=== PATIENT | female | born 1945 | race Caucasian/White ===

== ENCOUNTER 2018-02-10 17:23 | Observation (INO) | payer MEDICARE, OTHER ==
[2018-02-10] MEDS ORDERED: ASPIRIN 81 MG TAB.CHEW PO ONE (17:35)
[2018-02-10] MEDS ORDERED: ASPIRIN 81 MG TAB.CHEW ONE (17:41)
[2018-02-10 17:51] LABS: Hematocrit 42.8 % (37.0-47.0); Mean Cell Volume 86.3 fl (78-100); Mean Corpuscular Hemoglobin 28.2 pg (27-31); Mean Corpuscular Hgb Conc 32.7 g/dl (32-36); Mean Platelet Volume 10.6 fl (8-12.5); Neutrophil # 5.2 K/mm3 (1.3-6.0); Neutrophil % 54.4 % (42-75.0); Platelet Count 256 K/mm3 (150-450); Red Blood Count 4.96 M/mm3 (4.2-5.4); Red Cell Distribution Width 13.1 % (11.5-14.0); White Blood Count 9.5 K/mm3 (4.0-10.5)
[2018-02-10 18:15] LABS: ALT 25 U/L (19-67); AST 13 U/L (0-48); Albumin * 3.4 gm/dl (3.4-5.0); Alkaline Phosphatase * 76 U/L (50-170); Anion Gap 8.5 mmol/L (6.8-13.8); BUN/Creatinine Ratio 18.1 (9.0-21.6); Bilirubin, Total 0.5 mg/dL (0.0-1.1); Blood Urea Nitrogen 17 mg/dL (3-23); Ca. Corrected For Albumin 9.2 mg/dL (8.4-10.2); Carbon Dioxide 29.5 mmol/L (24-32.6); Chloride 102 mmol/L (97-106); Glucose * 112 mg/dL (70-110); Sodium 136 mmol/L (132-142); Total Protein 6.6 gm/dL (6.2-8.2); Troponin I Less than 0.017 ng/mL (0.00-0.10)
--- NOTE | 2018-02-10 18:59 | ERNOTE ---
Chest Pain/Cardiac HPI Chief Complaint: Chest Pain Time Seen by Provider: 02/10/18 18:49 Source: patient Exam Limitations: no limitations Immunizations: IMMUNIZATION HX Immunizations Up to Date Yes History of Influenza Vaccine Yes Hx Pneumococcal Vaccination Yes Allergies/Adverse Reactions: Allergies No Known Allergies Allergy (Verified 02/10/18 17:34) Home Medications: HOME MEDICATIONS Albuterol Sulfate [Proair Hfa] 2 puff IH Q4H PRN 10/22/12 [Last Taken Unknown] Atorvastatin Calcium 20 mg PO HS 10/22/12 [Last Taken Unknown] Ferrous Sulfate [Feosol] 325 mg PO DAILY 10/26/13 [Last Taken Unknown] Omeprazole 20 mg PO DAILY 10/26/13 [Last Taken Unknown] Acetaminophen [Tylenol] 1,000 mg PO Q6H PRN 04/06/15 [Last Taken Unknown] Albuterol Sulfate [Albuterol Sulfate 2.5 MG/0.5ML] 1 vial IH Q4H PRN 04/06/15 [Last Taken Unknown] Cholecalciferol (Vitamin D3) [Vitamin D3] 10,000 unit PO DAILY 04/06/15 [Last Taken Unknown] Aspirin [Aspirin Chewable] 81 mg PO DAILY 01/21/16 [Last Taken Unknown] Metoprolol Succinate [Toprol Xl] 50 mg PO DAILY 01/21/16 [Last Taken Unknown] Nitroglycerin [Nitrostat] 0.4 mg SL Q5MX3 PRN 01/21/16 [Last Taken Unknown] amLODIPine BESYLATE [Norvasc] 5 mg PO DAILY 01/21/16 [Last Taken Unknown] alendronate 70 mg tablet 70 mg PO Q7D #5 tab 10/29/17 [Last Taken Unknown] umeclidinium 62.5 mcg/actuation blister powder for inhalation IH 30 Days #30 10/29/17 [Last Taken Unknown] triamcinolone acetonide 0.1 % topical cream 1 applic TOPICAL BID 14 Days #80 g 02/04/18 [Last Taken Unknown] Narrative: Patient has a history of CAD had a stent placed a few years ago. She has had occasional chest pain since and has been followed by Dr Lopez. Today she had one episode of central chest pain radiating to her right jaw, the symptoms lasted 30 minutes resolved with three nitro she took at work, no pain now. She had a prior pain episode earlier this week Date (Duration): 02/10/18 Time (Timing): 17:30 Timing: resolved prior to arrival Severity/Quality: moderate Location: central Chest Pain Radiation: jaw Activities at Onset: none Nitro Today/Relief: 0.4 mg x 3 Aspirin Treatment Today: 81 mg x 4, provided at home, provided by ED Associated Symptoms: Present: cough, shortness of breath. Absent: headache, dizziness, fever/chills, abdominal pain Prior Chest Pain/Cardiac Workup: Reports: prior chest pain, cardiac cath Prior Treatment: Denies: recently seen, currently on antibiotics Review of Systems - Review of Systems Constitutional: Absent: recent illness, fever ENT: Absent: nose congestion, sore throat Respiratory: Present: shortness of breath Cardiology: Present: chest pain Gastrointestinal/Abdominal: Absent: nausea, vomiting, abdominal pain Genitourinary: Present: no symptoms reported Musculoskeletal: Absent: back pain Neurological: Absent: headache Medical History (Last Reviewed 02/10/18 @ 19:23 by Caren Loja MD) Fracture of radius (Acute) Onset Date: ~2009 Wrist fracture (Acute) Onset Date: Unknown Vitamin B12 deficiency (Acute) Onset Date: Unknown Ovarian cyst (Acute) Onset Date: Unknown Osteopenia (Acute) Onset Date: Unknown Onycholysis (Acute) Onset Date: ~2011 Hypertension (Acute) Onset Date: ~2011 Hyperlipidemia (Acute) Onset Date: Unknown Hearing impaired (Acute) Onset Date: ~2011 GERD (gastroesophageal reflux disease) (Chronic) Onset Date: ~2011 Genital herpes (Chronic) Onset Date: Unknown Dyspareunia (Acute) Onset Date: Unknown Diverticulitis (Acute) Onset Date: ~2012 Depression (Chronic) Onset Date: Unknown Coronary artery disease (Chronic) Onset Date: ~2012 COPD (chronic obstructive pulmonary disease) (Acute) Onset Date: ~2014 Animal bite (Acute) Onset Date: Unknown Cat bite (Acute) Onset Date: Unknown Cat bite of hand (Acute) Onset Date: Unknown Cellulitis and abscess of hand (Acute) Onset Date: Unknown Nasal bone fracture (Acute) Onset Date: Unknown Dislocation of right ulnar styloid (Acute) Onset Date: Unknown Distal radius fracture, right (Acute) Onset Date: Unknown Cold sore (Acute) Onset Date: Unknown Post-operative pain (Acute) Onset Date: Unknown Distal radial fracture (Acute) Onset Date: Unknown Ecchymosis (Acute) Onset Date: Unknown Foreign body ingestion (Acute) Onset Date: Unknown Contusion (Acute) Onset Date: Unknown Contusion of left knee (Acute) Onset Date: Unknown Surgical History: Surgical History (Last Reviewed 02/10/18 @ 19:23 by Caren Loja MD) History of appendectomy (Resolved) Onset Date: ~1955 H/O section (Resolved) Onset Date: ~1966 H/O cardiac catheterization (Resolved) Onset Date: ~2012 History of cataract surgery (Resolved) Onset Date: ~2011 Abnormal colonoscopy (Resolved) Onset Date: ~2010 History of coronary artery stent placement (Resolved) Onset Date: ~2011 History of esophagogastroduodenoscopy (EGD) (Resolved) Onset Date: ~2012 H/O knee surgery (Resolved) Onset Date: ~2008 H/O meniscectomy of right knee (Resolved) Onset Date: ~2008 History of open reduction and internal fixation (ORIF) procedure (Resolved) Onset Date: ~2009 H/O tubal ligation (Resolved) Onset Date: ~1978 Family History: Family History (Last Reviewed 02/10/18 @ 17:35 by Marry Rivas RN) Aunt Cancer Mother CHF (congestive heart failure) Heart disease Hypoglycemia Social History: Preferred Language Latvian Smoking Status Never smoker Abuse History No History of abuse Psych History No pertinent hx Alcohol Use none Drug Use none Physical Exam - Physical Exam General Appearance: Present: wd/wn, alert, no apparent distress Ears, Nose, Throat: Present: normal pharynx Respiratory: Present: no respiratory distress, no accessory muscle use, chest nontender, decreased breath sounds, expiration (prolonged) Cardiovascular/Chest: Present: regular rate, rhythm, no murmur Gastrointestinal/Abdominal: Present: normal bowel sounds, nontender, nondistended Extremity Exam: Present: no edema Neurological Exam: Present: alert, oriented, normal mood/affect Skin Exam: Present: normal color, warm/dry ED Progress - Results and Orders Patient's Lab Results:: I have reviewed the patient's lab results. - Vital Signs Patient's Vital Signs:: I have reviewed the patient's vital signs. Vital Signs: Vital Signs 02/10/18 17:32 02/10/18 18:17 Temperature 36.7 C Pulse Rate 58 L 52 L Respiratory Rate 15 16 Blood Pressure 121/55 130/70 O2 Sat by Pulse Oximetry 98 95 - EKG EKG: NSR - sinusbrady, no ST T wave changes, other - no acute changes EKG read: Interp. by me - X-Ray X-Ray #1 X-Ray: chest - blunting of costophrenal angle, no acute changes Interpretation: Interp. by me - Progress/Reassessment Chief Complaint: Chest Pain Progress Note-Subjective: 02/10/18 19:00 discussed test results with patient and family recommended admission, patient agreed 02/10/18 19:09 discussed with debra Baker to admit for chest pain Departure Clinical Impression: Chest pain Qualifiers: Chest pain type: unspecified Qualified Code(s): R07.9 - Chest pain, unspecified - Departure Disposition: Still a patient Condition: Good
[2018-02-10] MEDS ORDERED: ALBUTEROL SULFATE 2.5 MG/0.5 ML VIAL.NEB IH PRN (20:42)
[2018-02-10] MEDS ORDERED: NITROGLYCERIN 0.4 MG/TAB BTL SL PRN (20:42)
[2018-02-10] MEDS ORDERED: ROSUVASTATIN CALCIUM 20 MG TABLET PO SCH (21:00)
[2018-02-10] MEDS ORDERED: ROSUVASTATIN CALCIUM 10 MG TABLET ONE (21:23)
[2018-02-10] MEDS ORDERED: amLODIPine BESYLATE 5 MG TABLET ONE (21:24)
[2018-02-10] MEDS: amLODIPine BESYLATE 5 MG TABLET PO SCH (21:27)
[2018-02-11 05:52] LABS: CK Total * 26 U/L (0-259); CKMB 0.7 ng/mL (0.0-9.0); Troponin I Less than 0.017 ng/mL (0.00-0.10)
--- NOTE | 2018-02-11 08:54 | HP ---
Chief Complaint - Chief Complaint Date of Service: 02/11/18 Time of Service: 06:30 Chief Complaint: Chest pain History of Present Illness: The patient presented to the emergency department with complaints of chest pain. The patient states she has had 2-4 episodes of chest pain within the past week. She had an episode earlier in the day prior to presenting to the ED and states that chest pain was centrally located in her chest and radiated to her left jaw. The patient has had no chest pain since arrival to the hospital. The patient states she cannot correlate the chest pain with any specific activity and the chest pain occurred while she was just standing at the [employer] at work. The chest pain does not seem to occur worsen with increased activity. The patient is unsure whether the chest pain is related to eating but states she feels the chest pain is probably related to acid reflux even though she did not have overt symptoms of heartburn. The patient does have a significant cardiac history including hypertension, hyperlipidemia and coronary artery disease and has had coronary stent placement in the past. 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 Medical History (Last Reviewed 02/11/18 @ 01:29 by Maira Retana RN) Fracture of radius (Acute) Onset Date: ~2009 Wrist fracture (Acute) Onset Date: Unknown Vitamin B12 deficiency (Acute) Onset Date: Unknown Ovarian cyst (Acute) Onset Date: Unknown Osteopenia (Acute) Onset Date: Unknown Onycholysis (Acute) Onset Date: ~2011 Hypertension (Acute) Onset Date: ~2011 Hyperlipidemia (Acute) Onset Date: Unknown Hearing impaired (Acute) Onset Date: ~2011 GERD (gastroesophageal reflux disease) (Chronic) Onset Date: ~2011 Genital herpes (Chronic) Onset Date: Unknown Dyspareunia (Acute) Onset Date: Unknown Diverticulitis (Acute) Onset Date: ~2012 Depression (Chronic) Onset Date: Unknown Coronary artery disease (Chronic) Onset Date: ~2012 COPD (chronic obstructive pulmonary disease) (Acute) Onset Date: ~2014 Animal bite (Acute) Onset Date: Unknown Cat bite (Acute) Onset Date: Unknown Cat bite of hand (Acute) Onset Date: Unknown Cellulitis and abscess of hand (Acute) Onset Date: Unknown Nasal bone fracture (Acute) Onset Date: Unknown Dislocation of right ulnar styloid (Acute) Onset Date: Unknown Distal radius fracture, right (Acute) Onset Date: Unknown Cold sore (Acute) Onset Date: Unknown Post-operative pain (Acute) Onset Date: Unknown Distal radial fracture (Acute) Onset Date: Unknown Ecchymosis (Acute) Onset Date: Unknown Foreign body ingestion (Acute) Onset Date: Unknown Contusion (Acute) Onset Date: Unknown Contusion of left knee (Acute) Onset Date: Unknown Surgical History: Surgical History (Last Reviewed 02/11/18 @ 01:29 by Maira Retana RN) History of appendectomy (Resolved) Onset Date: ~1955 H/O section (Resolved) Onset Date: ~1966 H/O cardiac catheterization (Resolved) Onset Date: ~2012 History of cataract surgery (Resolved) Onset Date: ~2011 Abnormal colonoscopy (Resolved) Onset Date: ~2010 History of coronary artery stent placement (Resolved) Onset Date: ~2011 History of esophagogastroduodenoscopy (EGD) (Resolved) Onset Date: ~2012 H/O knee surgery (Resolved) Onset Date: ~2008 H/O meniscectomy of right knee (Resolved) Onset Date: ~2008 History of open reduction and internal fixation (ORIF) procedure (Resolved) Onset Date: ~2009 H/O tubal ligation (Resolved) Onset Date: ~1978 Family History: Family History (Last Reviewed 02/11/18 @ 01:29 by Maira Retana RN) Aunt Cancer Mother CHF (congestive heart failure) Heart disease Hypoglycemia Social History: Patient Lives/Resources With Spouse Utilized Preferred Language Nauruan Do you have any judaism or No cultural preference? Smoking Status Never smoker Have you smoked in the past 12 No months Do you dip or chew tobacco No Abuse History No History of abuse Psych History No pertinent hx Alcohol Use none Drug Use none Review Of Systems (GEN) - Review of Systems Generalized/Overall Review: Present: No Symptoms Reported EENTM: Present: No Symptoms Reported Respiratory: Present: No Symptoms Reported Cardiac: Present: No Symptoms Reported Abdominal: Present: No Symptoms Reported Genitourinary: Present: No Symptoms Reported Musculoskeletal: Present: No Symptoms Reported Neurological: Present: No Symptoms Reported Skin: Present: No Symptoms Reported Endocrine: Present: No Symptoms Reported Misc: All systems neg except as marked Additional Comments: The patient denies any active symptoms other than being tired because she hasn't gotten much sleep since admission Immunizations: IMMUNIZATION HX Immunizations Up to Date Yes History of Influenza Vaccine Yes Hx Pneumococcal Vaccination Yes Allergies/Adverse Reactions: Allergies Allergy/AdvReac Type Severity Reaction Status Date / Time No Known Allergies Allergy Verified 02/11/18 01:29 Home Medications: HOME MEDICATIONS Albuterol Sulfate [Proair Hfa] 2 puff IH Q4H PRN 10/22/12 [Last Taken Unknown] Atorvastatin Calcium 20 mg PO HS 10/22/12 [Last Taken 02/09/18] Ferrous Sulfate [Feosol] 325 mg PO DAILY 10/26/13 [Last Taken 02/10/18] Omeprazole 20 mg PO DAILY 10/26/13 [Last Taken 02/10/18] Acetaminophen [Tylenol] 1,000 mg PO Q6H PRN 04/06/15 [Last Taken Unknown] Albuterol Sulfate [Albuterol Sulfate 2.5 MG/0.5ML] 1 vial IH Q4H PRN 04/06/15 [Last Taken Unknown] Cholecalciferol (Vitamin D3) [Vitamin D3] 10,000 unit PO DAILY 04/06/15 [Last Taken 02/10/18] Aspirin [Aspirin Chewable] 81 mg PO DAILY 01/21/16 [Last Taken 02/10/18] Metoprolol Succinate [Toprol Xl] 50 mg PO BID 01/21/16 [Last Taken 02/10/18] Nitroglycerin [Nitrostat] 0.4 mg SL Q5MX3 PRN 01/21/16 [Last Taken 02/10/18] amLODIPine BESYLATE [Norvasc] 5 mg PO DAILY 01/21/16 [Last Taken 02/09/18] alendronate 70 mg tablet 70 mg PO Q7D #5 tab 10/29/17 [Last Taken Unknown] umeclidinium 62.5 mcg/actuation blister powder for inhalation 62.5 mcg IH DAILY 30 Days #30 10/29/17 [Last Taken 02/10/18] triamcinolone acetonide 0.1 % topical cream 1 applic TOPICAL BID 14 Days #80 g 02/04/18 [Last Taken Unknown] Exam - Exam Vital Signs: Vital Signs - Last Taken Temp 36.5 C 02/11/18 07:09 Pulse 56 L 02/11/18 07:09 Resp 18 02/11/18 07:09 BP 126/44 02/11/18 07:09 Pulse Ox 98 02/11/18 07:09 Constitutional: Present: Alert, Oriented x3, Cooperative, No distress ENT Exam: Present: hard of hearing, moist mucous membranes Respiratory: Present: lungs clear, normal breath sounds, no respiratory distress, no accessory muscle use Cardiovascular/Chest: Present: bradycardia Abdomen: Present: soft, nontender Extremity: Present: normal inspection Skin Exam: Present: normal color, warm/dry Neurologic: Present: no motor/sensory deficits, alert, normal mood/affect, oriented x 3 Appearance: Present: appropriate appearance, appropriate insight, neat, no memory impairment Eye contact: Present: cooperative, good eye contact, normal speech Thoughts: Present: normal thought pattern, no apparent hallucination Diagnostic Studies: Abnormal Lab Results 02/10/18 02/10/18 Range/Units 17:46 17:46 Immature Gran % (Auto) 0.60 H (0.001-0.429) % Immature Gran # (Auto) 0.06 H (0.000-0.0310) K/mm3 Monocytes % 9.4 H (0.0-9) % Random Glucose 112 H (70-110) mg/dL Laboratory Results WBC 9.5 K/mm3 (4.0-10.5) 02/10/18 17:46 RBC 4.96 M/mm3 (4.2-5.4) 02/10/18 17:46 Hgb 14.0 gm/dL (12.5-16.0) 02/10/18 17:46 Hct 42.8 % (37.0-47.0) 02/10/18 17:46 MCV 86.3 fl (78-100) 02/10/18 17:46 MCH 28.2 pg (27-31) 02/10/18 17:46 MCHC 32.7 g/dl (32-36) 02/10/18 17:46 RDW 13.1 % (11.5-14.0) 02/10/18 17:46 Plt Count 256 K/mm3 (150-450) 02/10/18 17:46 MPV 10.6 fl (8-12.5) 02/10/18 17:46 Immature Gran % (Auto) 0.60 % (0.001-0.429) H 02/10/18 17:46 Immature Gran # (Auto) 0.06 K/mm3 (0.000-0.0310) H 02/10/18 17:46 Neutrophils % 54.4 % (42-75.0) 02/10/18 17:46 Lymphocytes % 34.2 % (20-51) 02/10/18 17:46 Monocytes % 9.4 % (0.0-9) H 02/10/18 17:46 Eosinophils % 1.2 % (0.0-3.0) 02/10/18 17:46 Basophils % 0.2 % (0.0-1.0) 02/10/18 17:46 Nucleated RBC % 0.0 k/mm3 (0-1) 02/10/18 17:46 Neutrophils # 5.2 K/mm3 (1.3-6.0) 02/10/18 17:46 Lymphocytes # 3.25 k/mm3 (1.5-3.5) 02/10/18 17:46 Monocytes # 0.9 k/mm3 (0.0-1.0) 02/10/18 17:46 Eosinophils # 0.1 k/mm3 (0.0-0.7) 02/10/18 17:46 Absolute Basophils 0.0 k/mm3 (0.0-0.1) 02/10/18 17:46 Sodium 136 mmol/L (132-142) 02/10/18 17:46 Plasma Sodium 136 mmol/L (130-142) 02/10/18 17:46 Potassium 4.0 mmol/L (3.4-4.6) 02/10/18 17:46 Chloride 102 mmol/L (97-106) 02/10/18 17:46 Carbon Dioxide 29.5 mmol/L (24-32.6) 02/10/18 17:46 Anion Gap 8.5 mmol/L (6.8-13.8) 02/10/18 17:46 BUN 17 mg/dL (3-23) 02/10/18 17:46 Creatinine 0.94 mg/dL (0.4-1.4) 02/10/18 17:46 Est GFR (Non-Af Amer) 62 mL/min (60-130) 02/10/18 17:46 BUN/Creatinine Ratio 18.1 (9.0-21.6) 02/10/18 17:46 Random Glucose 112 mg/dL (70-110) H 02/10/18 17:46 Calcium 9.0 mg/dL (7.9-10.9) 02/10/18 17:46 Calcium Adj for Albumin 9.2 mg/dL (8.4-10.2) 02/10/18 17:46 Total Bilirubin 0.5 mg/dL (0.0-1.1) 02/10/18 17:46 AST 13 U/L (0-48) 02/10/18 17:46 ALT 25 U/L (19-67) 02/10/18 17:46 Alkaline Phosphatase 76 U/L (50-170) 02/10/18 17:46 Creatine Kinase 26 U/L (0-259) 02/11/18 05:26 CK-MB (CK-2) 0.7 ng/mL (0.0-9.0) 02/11/18 05:26 CK-MB (CK-2) Rel Index 2.7 (0.0-3.6) 02/11/18 05:26 Troponin I Less than 0.017 ng/mL (0.00-0.10) 02/11/18 05:26 Total Protein 6.6 gm/dL (6.2-8.2) 02/10/18 17:46 Albumin 3.4 gm/dl (3.4-5.0) 02/10/18 17:46 Assessment/Plan - Narrative Narrative: Cardiac enzymes trended overnight and unremarkable. EKG on admission and repeat EKG this morning unremarkable. Patient monitored on telemetry overnight and unremarkable. The patient is chest pain-free at the time of my exam today. The chest pain does not appear to be cardiac related and was likely secondary to a GI source such as esophageal spasms, GERD, etc. The patient was stable for discharge and will be discharged home and instructed to follow-up with her primary care physician within one to 2 weeks. - Assessment/Plan (1) Chest pain Problem: Resolved Qualifiers: Chest pain type: unspecified Qualified Code(s): R07.9 - Chest pain, unspecified
--- NOTE | 2018-02-11 08:57 | DS ---
(1) Chest pain Problem: Resolved Qualifiers: Chest pain type: unspecified Qualified Code(s): R07.9 - Chest pain, unspecified Description of Stay: ADMISSION DATE: 02/10/2018 DISCHARGE DATE: 02/11/2018 ADMISSION HPI: The patient presented to the emergency department with complaints of chest pain. The patient states she has had 2-4 episodes of chest pain within the past week. She had an episode earlier in the day prior to presenting to the ED and states that chest pain was centrally located in her chest and radiated to her left jaw. The patient has had no chest pain since arrival to the hospital. The patient states she cannot correlate the chest pain with any specific activity and the chest pain occurred while she was just standing at the [employer] at work. The chest pain does not seem to occur worsen with increased activity. The patient is unsure whether the chest pain is related to eating but states she feels the chest pain is probably related to acid reflux even though she did not have overt symptoms of heartburn. The patient does have a significant cardiac history including hypertension, hyperlipidemia and coronary artery disease and has had coronary stent placement in the past. 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 HOSPITAL COURSE: The patient was admitted to the hospital for chest pain rule out. Cardiac enzym es trended overnight and unremarkable. EKG on admission and repeat EKG this morning unremarkable. Patient monitored on telemetry overnight and unremarkable. The patient is chest pain free at the time of my exam today. The chest pain does not appear to be cardiac related and was likely secondary to a GI source such as esophageal spasms, GERD, etc. The patient was stable for discharge and she was instructed to follow-up with her primary care physician within 1 to 2 weeks. FOLLOW-UP APPOINTMENTS: -PCP, Bing Patel, within 1-2 weeks NEW OR CHANGED MEDICATIONS: -None DISCONTINUED MEDICATIONS: -None RADIOLOGY REPORTS: PA and lateral chest x-ray on 02/10/2018: Hyperinflated lung volumes, with flattened hemidiaphragms noted, stable. Consider underlying chronic bronchitis, or COPD. No consolidation or mass. Bilateral basilar scarring/atelectasis noted. No significant vascular congestion suggested. No pneumothorax or pleural fluid collections. Cardiac silhouette within normal limits. Mild tortuosity of the thoracic aorta noted, with overlying atherosclerotic vascular calcifications. Trachea is in normal position. Bones show degenerative changes of the spine. IMPRESSION: 1. Bibasilar atelectasis versus scarring. 2. Otherwise unremarkable. Stable findings are as above. Procedures Performed: none Results and Findings: Lab Pending Results 02/10/18 17:46: WBC 9.5, RBC 4.96, Hgb 14.0, Hct 42.8, MCV 86.3, MCH 28.2, MCHC 32.7, RDW 13.1, Plt Count 256, MPV 10.6, Immature Gran % (Auto) 0.60 H, Immature Gran # (Auto) 0.06 H, Neutrophils % 54.4, Lymphocytes % 34.2, Monocytes % 9.4 H, Eosinophils % 1.2, Basophils % 0.2, Nucleated RBC % 0.0, Neutrophils # 5.2, Lymphocytes # 3.25, Monocytes # 0.9, Eosinophils # 0.1, Absolute Basophils 0.0 02/10/18 17:46: Sodium 136, Plasma Sodium 136, Potassium 4.0, Chloride 102, Carbon Dioxide 29.5, Anion Gap 8.5, BUN 17, Creatinine 0.94, Est GFR (Non-Af Amer) 62, BUN/Creatinine Ratio 18.1, Random Glucose 112 H, Calcium 9.0, Calcium Adj for Albumin 9.2, Total Bilirubin 0.5, AST 13, ALT 25, Alkaline Phosphatase 76, Troponin I Less than 0.017, Total Protein 6.6, Albumin 3.4 02/11/18 01:28: Troponin I Less than 0.017 02/11/18 05:26: Creatine Kinase 26, CK-MB (CK-2) 0.7, CK-MB (CK-2) Rel Index 2.7, Troponin I Less than 0.017 Discharge Location: Home Disposition: Home self-care Condition: Stable Discharge Activity: Activity as tolerated Discharge Diet: Low salt, Low fat/chol, Other - Heart Healthy Diet Referrals: Bing Patel FNP [Primary Care Provider] - Additional Patient Instructions (free text): -Please make TCM appointment unless long term discharge. Thank you! Bonnie @ [phone].-Follow-up with PCP, Bing Patel, within 1-2 weeks Complete Home Medications List: Complete Home Medication List: Albuterol Sulfate [Proair Hfa] 2 puff IH Q4H PRN 10/22/12 Atorvastatin Calcium 20 mg PO HS 10/22/12 Ferrous Sulfate [Feosol] 325 mg PO DAILY 10/26/13 Omeprazole 20 mg PO DAILY 10/26/13 Acetaminophen [Tylenol] 1,000 mg PO Q6H PRN 04/06/15 Albuterol Sulfate [Albuterol Sulfate 2.5 MG/0.5ML] 1 vial IH Q4H PRN 04/06/15 Cholecalciferol (Vitamin D3) [Vitamin D3] 10,000 unit PO DAILY 04/06/15 Aspirin [Aspirin Chewable] 81 mg PO DAILY 01/21/16 Metoprolol Succinate [Toprol Xl] 50 mg PO BID 01/21/16 Nitroglycerin [Nitrostat] 0.4 mg SL Q5MX3 PRN 01/21/16 amLODIPine BESYLATE [Norvasc] 5 mg PO DAILY 01/21/16 alendronate 70 mg tablet 70 mg PO Q7D #5 tab 10/29/17 umeclidinium 62.5 mcg/actuation blister powder for inhalation 62.5 mcg IH DAILY 30 Days #30 10/29/17 triamcinolone acetonide 0.1 % topical cream 1 applic TOPICAL BID 14 Days #80 g 02/04/18
[2018-02-11] MEDS ORDERED: METOPROLOL SUCCINATE 25 MG TABLET.SA PO SCH (09:00)
[2018-02-11] MEDS ORDERED: ASPIRIN 81 MG TAB.CHEW PO SCH (09:00)
[2018-02-11] MEDS ORDERED: CHOLECALCIFEROL 5,000 UNIT TABLET PO SCH (09:00)
[2018-02-11] MEDS ORDERED: UMECLIDINIUM BROMIDE 62.5 MCG IH SCH (09:00)
[2018-02-11] MEDS ORDERED: OMEPRAZOLE 20 MG CAPSULE.SA PO SCH (09:00)
[2018-02-11] MEDS ORDERED: PANTOPRAZOLE SODIUM 20 MG TABLET.DR PO SCH (09:00)
[2018-02-11] MEDS ORDERED: FERROUS SULFATE 325 MG TABLET PO SCH (09:00)
[2018-02-11] MEDS ORDERED: METOPROLOL SUCCINATE 50 MG TABLET.SA PO SCH (09:00)
[2018-02-11] MEDS: amLODIPine BESYLATE 5 MG TABLET PO SCH (09:33)
[2018-02-11 09:44] VITALS: BP 115/56
== END 2018-02-11 10:00 | disposition home or self-care (01) ==
LOC: MS 17:23 → ER 17:23 → MS 19:35
PROVIDERS: ADMIT Internal Medicine; ATTEND Internal Medicine
CPT/HCPCS: 36415; 71020; 71046; 80053; 82550; 82553; 84484; 85025; 90686; 93005; 99285; G0008; G0378